=== PATIENT | female | born 1990 | race Two or more races ===

== ENCOUNTER 2025-06-17 02:50 | Emergency (ER) | payer MEDICAID, OTHER ==
[~2025-06-17] VITALS: Ht 152.4 cm; Wt 4.0 kg
[2025-06-17 03:10] VITALS: BP 149/94; PULSE 114; RESP 18; TEMP 99; O2SAT 96
--- NOTE | 2025-06-17 03:20 | ED.PDOC ---
Back pain HPI HPI Comments PT C/O 9/10 PAIN TO RT WRIST S/P FALL THIS MORNING. PT REPORTS THAT SHE TRIPPED AND FELL. NOTED DEFORMITY AND SWELLING TO RT WRIST. PULSES PRESENT, BRISK CAP REFILL. PT A&OX4, VSS, RR EVEN AND UNLABORED ON RA. Chief Complaint: Upper Extremity Time Seen by MD: 02:52 Reviewed Notes: Nurses Notes, Medications, Allergies Allergies: Coded Allergies: NO KNOWN ALLERGIES (Unverified , 06/17/25) Information Source: Patient Past Medical History PAST MEDICAL HISTORY: Denies Surgical History: Denies all surgeries PAINT MAKER History: No Pertinent PAINT MAKER History Family History Family History: Reviewed,noncontributory to illness Social History Smoker: Non-Smoker Alcohol: Denies ETOH Use Drugs: Denies Drug Use Constitutional: denies: chills, diaphoresis, fatigue, fever, malaise, sweats, weakness, others EENTM: denies: blurred vision, double vision, ear bleeding, ear discharge, ear drainage, ear pain, ear ringing, eye pain, eye redness, hearing loss, mouth pain, mouth swelling, nasal discharge, nose bleeding, nose congestion, nose pain, photophobia, tearing, throat pain, throat swelling, voice changes, others Respiratory: denies: cough, hemoptysis, orthopnea, SOB at rest, shortness of breath, SOB with excertion, stridor, wheezing, others Cardiovascular: denies: chest pain, dizzy spells, diaphoresis, Dyspnea on exertion, edema, irregular heart beat, left arm pain, lightheadedness, palpitations, PND, syncope, others Gastrointestinal: denies: abdomen distended, abdominal pain, blood streaked bowels, constipated, diarrhea, dysphagia, difficulty swallowing, hematemesis, melena, nausea, poor appetite, poor fluid intake, rectal bleeding, rectal pain, vomiting, others Genitourinary: denies: abnormal vagina bleeding, burning, dyspareunia, dysuria, flank pain, frequency, hematuria, incontinence, pain, , vagina discharge, urgency, others Neurological: denies: dizziness, fainting, headache, left sided numbness, left sided weakness, numbness, paresthesia, pre-existing deficit, right sided numbness, right sided weakness, seizure, speech problems, tingling, tremors, weakness, others Musculoskeletal: reports: joint pain, joint swelling; denies: back pain, gout, muscle pain, muscle stiffness, neck pain, others Integumetry: denies: bruises, change in color, change in hair/nails, dryness, laceration, lesions, lumps, rash, wounds, others Allergic/Immunocompromised: denies: Difficulty Healing, Frequent Infections, Hives, Itching, others Hematologic/Lymphatic: denies: anemia, blood clots, easy bleeding, easy bruising, swollen glands, others Endocrine: denies: excessive hunger, excessive sweating, excessive thirst, excessive urination, flushing, intolerance to cold, intolerance to heat, unexplained weight gain, unexplained weight loss, others Psychiatric: denies: anxiety, bipolar disorder, depression, hopeless, panic disorder, schizophrenia, sleepless, suicidal, others Physical Exam General Appearance: No Apparent Distress, Normal HEENT: Pharynx Normal Neck: Full Range of Motion, Non-Tender Respiratory: Lungs Clear, No Respiratory Distress, Normal Breath Sounds Cardiovascular: No Murmur, Normal Peripheral Pulses, Regular Rate/Rhythm Breast Exam: Deferred Gastrointestinal: Non Tender, Soft Genitalia: Deferred Pelvic: Deferred Rectal: Deferred Extremities: Normal range of motion Musculoskeletal : Location: Right Extremity Location: Wrist (PALPATED OVER ANTERIOR WRIST MORDERATE EDEMA AND ANGULATION NOTED. STRENGTH SENSORY MOTION INTACT POSITIVE RADIAL PULSE) Apperance: Normal Neurologic: Alert, No Motor Deficits, Normal Affect, Normal Mood, No Sensory Deficits Cerebellar Function: Normal Reflexes: Normal Skin: Dry, Normal Color, Warm Lymphatic: No Adenopathy Was a procedure done? Was a procedure done?: Yes Sedation Sedation?: No Informed consent obtained: Yes Reduction Indication: Subluxation, Fracture Intra-articular anesthetic nely: Yes Nerve Block: Radial Post-reduction x-ray show: Acceptable Alignment Informed consent obtained: Yes Risks/benefits/alt described: Yes Notes TOLERATED WELL POSITIVE CSM BEFORE AND AFTER PROCEDURE. Back Pain Differential Dx Differential Diagnosis: Fracture, Musculoskeletal Pain, Strain X-Ray, Labs, Meds, VS Vital Signs Date Time Temp Pulse Resp B/P (MAP) Pulse Ox O2 Delivery O2 Flow Rate FiO2 06/17/25 03:10 99.0 114 18 149/94 (112) 96 99.0 Current Medications Medications (Trade) Dose Ordered Sig/Ras Route Start Time Stop Time Status Last Admin Acetaminophen/ Hydrocodone Bitart ([place] 5/325MG Tab) 1 tab ONCE ONCE PO 06/17/25 03:15 06/17/25 03:17 DC 06/17/25 03:41 Ibuprofen (Motrin Tablet) 800 mg ONCE ONCE PO 06/17/25 03:15 06/17/25 03:17 DC 06/17/25 03:40 X-Ray, Labs, Meds, VS Comment Y R WRIST 3+ VIEW XRAY Comparison: None FINDINGS/IMPRESSION: : Moderately displaced comminuted Colles' type distal radial fracture with intra- articular extension. Moderately distracted ulnar styloid process fracture. Associated soft tissue swelling. RIGHT WRIST REDUCED SEE PROCEDURE NOTE. POLICE IN SPLINT AND SLING. SCRIPT TRIAL OF IBUPROFEN ADVISED TAKE MEDICATION PRESCRIBED SIDE EFFECTS DISCUSSED. ADVISED IN MORNING CALL PCP REFERRAL TO DR. KALYAN LUCIO FOR ORTHO CONSULT AND RE-EVALUATION. ADVISED ON RICE. ADVISED ON ER RETURN PRECAUTIONS PATIENT INDICATES UNDERSTANDING AND AGREES WITH DISCHARGE PLAN OF CARE. Time of 1ST Reevaluation: 02:52 Reevaluation 1ST: Unchanged Time of 2ND Reevaluation: 04:14 Reevaluation 2ND: Improved Patient Education/Counseling: Diagnosis, Treatment, Prognosis, Need For Follow Up Family Education/Counseling: No Family Present SEPSIS Sepsis Screen Physician Orders R Wrist 3+ View Xray (06/17/25 03:14) Splints (06/17/25 ) Apply Sling (06/17/25 03:38) R Wrist 3+ View Xray (06/17/25 04:15) Vital Signs Date Time Temp Pulse Resp B/P (MAP) Pulse Ox O2 Delivery O2 Flow Rate FiO2 06/17/25 03:10 99.0 114 18 149/94 (112) 96 99.0 Medications Medications Dose Ordered Sig/Ras Route Start Time Stop Time Status Last Admin Dose Admin Acetaminophen/ Hydrocodone Bitart 1 tab ONCE ONCE PO 06/17/25 03:15 06/17/25 03:17 DC 06/17/25 03:41 Ibuprofen 800 mg ONCE ONCE PO 06/17/25 03:15 06/17/25 03:17 DC 06/17/25 03:40 Departure 1 Departure Time of Disposition: 04:58 Impression: Primary Impression: Colles' fracture of right radius, initial encounter for closed fracture Disposition: 01 HOME / SELF CARE / HOMELESS Condition: Stable e-Prescriptions Ibuprofen (Ibuprofen) 800 Mg Tab 800 MG PO Q8HP PRN for 5 Days, #15 TAB Prov: SARAY MOCK 06/17/25 Discharged With: Self Critical Care Note Critical Care Time?: No Stability Stability form required: SARAY Munroe Jun 17, 2025 03:20
[2025-06-17] MEDS: IBUPROFEN 800 MG TAB PO ONE (03:40)
[2025-06-17] MEDS: HYDROcodone-ACET 5/325MG TAB PO ONE (03:41)
--- NOTE | 2025-06-17 03:47 | DVH ---
CLINICAL INDICATION: INJURY TECHNIQUE: XY R WRIST 3+ VIEW XRAY Comparison: None FINDINGS/IMPRESSION: : Moderately displaced comminuted Colles' type distal radial fracture with intra-articular extension. M oderately distracted ulnar styloid process fracture. Associated soft tissue swelling.
[2025-06-17] MEDS: LIDOCAINE 2%HCL (LOCAL ANESTH.) INJ 10ml MDV IJ ONE (04:00)
[2025-06-17] MEDS ORDERED: IBUP-1456 PO (05:00)
--- NOTE | 2025-06-17 05:08 | DVH ---
CLINICAL INDICATION: POST REDUCTION TECHNIQUE: XY R WRIST 3+ VIEW XRAY Comparison: XY R WRIST 3+ VIEW XRAY on DOS: 06/17/25 FINDINGS/IMPRESSION: : Slight interval improvement in alignment post reduction of comminuted and displaced fracture of the d istal radial metaphysis.
== END 2025-06-17 05:30 | disposition home or self-care (01) ==
LOC: ER 02:50
DX: S52.531A Colles' fracture of right radius, initial encounter for closed fracture (principal); W01.0XXA Fall on same level from slipping, tripping and stumbling without subsequent striking against object, initial encounter; Y93.89 Activity, other specified; Y92.89 Other specified places as the place of occurrence of the external cause; Y99.8 Other external cause status
CPT/HCPCS: 25605; 73110

== ENCOUNTER 2025-06-21 21:00 | Emergency (ER) | payer MEDICAID ==
[~2025-06-21] VITALS: Ht 162.6 cm; Wt 68.2 kg
[~2025-06-21 21:00] MED LIST: IBUP-1456 PO
[2025-06-21 21:25] VITALS: BP 161/99; PULSE 99; RESP 18; TEMP 97.8; O2SAT 100
[2025-06-21] MEDS ORDERED: HYDR-4902 PO (22:25)
--- NOTE | 2025-06-21 22:26 | ED.PDOC ---
Josefa. trauma (HPI) HPI Comments This patient is a pleasant 35-year-old female who arrives the ED today for evaluation of right arm splint as well as assistance with ortho follow up. Patient was seen this facility a week ago and diagnosed with a distal radial fracture that was comminuted and displaced. Patient states she has attempted to follow up with our orthopedic group as well as [facility], but no one has contacted her. Patient denies any fever nausea or vomiting. Patient's splint is ragged and ineffective. Time Seen by MD: 21:23 Reviewed notes: Nurses Notes Allergies: Coded Allergies: NO KNOWN ALLERGIES (Unverified , 06/17/25) Home Meds Active Scripts Ibuprofen (Ibuprofen) 800 Mg Tab, 800 MG PO Q8HP PRN for 5 Days, #15 TAB Prov:SARAY MOCK LOBO 06/17/25 Information Source: Patient Mode of Arrival: Ambulatory Severity: Moderate Timing: Days Duration: Since onset Prehospital treatment: Pain Meds Location: (R) Arm Location of laceration: None Mechanism: Blunt trauma Past Medical History PAST MEDICAL HISTORY: Denies Past Medical History (Other): Recently suffered a right distal radial fracture Surgical History: Denies all surgeries FACILITY COORDINATOR History: No Pertinent FACILITY COORDINATOR History Family History Family History: Reviewed,noncontributory to illness Social History Smoker: Non-Smoker Alcohol: Denies ETOH Use Drugs: Denies Drug Use Lives In: Home Constitutional: denies: chills, diaphoresis, fatigue, fever, malaise, sweats, weakness, others EENTM: denies: blurred vision, double vision, ear bleeding, ear discharge, ear drainage, ear pain, ear ringing, eye pain, eye redness, hearing loss, mouth pain, mouth swelling, nasal discharge, nose bleeding, nose congestion, nose pain, photophobia, tearing, throat pain, throat swelling, voice changes, others Respiratory: denies: cough, hemoptysis, orthopnea, SOB at rest, shortness of breath, SOB with excertion, stridor, wheezing, others Cardiovascular: denies: chest pain, dizzy spells, diaphoresis, Dyspnea on exertion, edema, irregular heart beat, left arm pain, lightheadedness, palpitations, PND, syncope, others Gastrointestinal: denies: abdomen distended, abdominal pain, blood streaked bowels, constipated, diarrhea, dysphagia, difficulty swallowing, hematemesis, melena, nausea, poor appetite, poor fluid intake, rectal bleeding, rectal pain, vomiting, others Genitourinary: denies: abnormal vagina bleeding, burning, dyspareunia, dysuria, flank pain, frequency, hematuria, incontinence, pain, , vagina discharge, urgency, others Neurological: denies: dizziness, fainting, headache, left sided numbness, left sided weakness, numbness, paresthesia, pre-existing deficit, right sided numbness, right sided weakness, seizure, speech problems, tingling, tremors, weakness, others Musculoskeletal: reports: others (Distal radial fracture of the right arm); d enies: back pain, gout, joint pain, joint swelling, muscle pain, muscle stiffness, neck pain Integumetry: denies: bruises, change in color, change in hair/nails, dryness, laceration, lesions, lumps, rash, wounds, others Allergic/Immunocompromised: denies: Difficulty Healing, Frequent Infections, Hives, Itching, others Hematologic/Lymphatic: denies: anemia, blood clots, easy bleeding, easy bruising, swollen glands, others Endocrine: denies: excessive hunger, excessive sweating, excessive thirst, excessive urination, flushing, intolerance to cold, intolerance to heat, unexplained weight gain, unexplained weight loss, others Psychiatric: denies: anxiety, bipolar disorder, depression, hopeless, panic disorder, schizophrenia, sleepless, suicidal, others Physical Exam General Appearance: Moderate Distress ([id number] distress due to pain related to the poorly place splint.), Normal HEENT: Normal ENT Inspection, Pharynx Normal, TMs Normal Neck: Full Range of Motion, Non-Tender, Normal, Normal Inspection Respiratory: Chest Non-Tender, Lungs Clear, No Accessory Muscle Use, No Respiratory Distress, Normal Breath Sounds Cardiovascular: No Edema, No JVD, No Murmur, No Gallop, Normal Peripheral Pulses, Regular Rate/Rhythm Breast Exam: Deferred Gastrointestinal: No Organomegaly, Non Tender, No Pulsatile Mass, Normal Bowel Sounds, Soft Genitalia: Deferred Pelvic: Deferred Rectal: Deferred Extremities: Other (Patient has a ready and ineffective sugar-tong splint to the right forearm.) Neurologic: Alert, No Motor Deficits, Normal Affect, Normal Mood, No Sensory Deficits Cerebellar Function: Normal Reflexes: Normal Skin: Dry, Normal Color, Warm Lymphatic: No Adenopathy Was a procedure done? Was a procedure done?: No Differential Diagnosis Multiple Trauma: Other (Distal radial fracture) X-Ray, Labs, Meds, VS Comment Patient had a new splint placed prior to discharge. Advised patient to follow up with [facility] on Tuesday personally or, come to this facility and asked for the orthopedic group run by Dr. Alexis for assistance. Time of 1ST Reevaluation: 22:23 Reevaluation 1ST: Improved Consultation: PCP, Other (Orthopedist) Patient Education/Counseling: Diagnosis, Treatment Family Education/Counseling: Diagnosis, Treatment Departure 1 Departure Time of Disposition: 22:24 Impression: Primary Impression: Fracture of right distal radius Additional Impression: Encounter for evaluation of wound Disposition: HOME / SELF CARE / HOMELESS Condition: Stable Additional Instructions: Advised patient go to [facility] on Tuesday or, come to this facility physically and asked for the orthopedic group run by Dr. Alexis. Pain medication as needed. e-Prescriptions Hydrocodone-Acetaminophen (Hydrocodone Bitartrate/AC 5-325 mg) 1 Tab Tab 1 TAB PO Q6HP PRN, #15 TAB Prov: VALERIE AYALA PAC 06/21/25 Discharged With: Self, Friend Critical Care Note Critical Care Time?: No Stability Stability form required: No Heart Score Heart Score: Heart Score Response (Comments) Value History N/A 0 EKG N/A 0 Age N/A 0 Risk Factors N/A 0 Troponin N/A 0 Total 0 VALERIE AYALA PAC Jun 21, 2025 22:26
[2025-06-21] MEDS ORDERED: HYDROcodone-ACET 5/325MG TAB PO ONE (22:30)
== END 2025-06-21 22:50 | disposition home or self-care (01) ==
LOC: ER 21:00
DX: S52.591D Other fractures of lower end of right radius, subsequent encounter for closed fracture with routine healing (principal); Z79.899 Other long term (current) drug therapy; Z48.89 Encounter for other specified surgical aftercare; X58.XXXD Exposure to other specified factors, subsequent encounter
CPT/HCPCS: 29125

== ENCOUNTER 2025-07-18 03:15 | Emergency (ER) | payer MEDICAID ==
[~2025-07-18] VITALS: Ht 162.6 cm; Wt 70.0 kg
[~2025-07-18 03:15] MED LIST changes: +HYDR-4902 PO; -IBUP-1456 PO
[2025-07-18 03:17] VITALS: BP 131/92; PULSE 96; RESP 18; TEMP 98.8; O2SAT 98
--- NOTE | 2025-07-18 04:34 | ED.PDOC ---
Musculoskeletal HPI Comments 35-year-old female presents to ER with complaints of right wrist pain x 1 month. Patient states she fractured her right wrist 1 month ago and has since been experiencing pain/swelling to right wrist that got worse today upon tripping/falling onto right wrist onto carpet. She rates her current pain an 8/10 to right wrist without radiation. States she has been "unable" to get an appointment to see an orthopedic doctor. Denies numbness/tingling, right hand pain, fever or any further symptoms/complaints Chief Complaint: Upper Extremity Time Seen by MD: 04:05 Primary Care Provider: UNKNOWN Reviewed Notes: Nurses Notes, Medications, Allergies Allergies: Coded Allergies: NO KNOWN ALLERGIES (Unverified , 06/17/25) Home Meds Active Scripts Hydrocodone-Acetaminophen (Hydrocodone Bitartrate/AC 5-325 mg) 1 Tab Tab, 1 TAB PO Q6HP PRN, #15 TAB Prov:LUCYVALERIE Korin PAC 06/21/25 Information Source: Patient Mode of Arrival: Ambulatory Past Medical History Past Medical History (Other): Right wrist - 07-18-25 Surgical History: Denies all surgeries PATTERN DESIGNER History: No Pertinent PATTERN DESIGNER History Family History Family History: Reviewed,noncontributory to illness Social History Smoker: Non-Smoker Alcohol: Denies ETOH Use Drugs: Denies Drug Use Lives In: Home Constitutional: denies: chills, diaphoresis, fatigue, fever, malaise, sweats, weakness, others EENTM: denies: blurred vision, double vision, ear bleeding, ear discharge, ear drainage, ear pain, ear ringing, eye pain, eye redness, hearing loss, mouth pain, mouth swelling, nasal discharge, nose bleeding, nose congestion, nose pain, photophobia, tearing, throat pain, throat swelling, voice changes, others Respiratory: denies: cough, hemoptysis, orthopnea, SOB at rest, shortness of breath, SOB with excertion, stridor, wheezing, others Cardiovascular: denies: chest pain, dizzy spells, diaphoresis, Dyspnea on exertion, edema, irregular heart beat, left arm pain, lightheadedness, palpitations, PND, syncope, others Gastrointestinal: denies: abdomen distended, abdominal pain, blood streaked bowels, constipated, diarrhea, dysphagia, difficulty swallowing, hematemesis, m lucius, nausea, poor appetite, poor fluid intake, rectal bleeding, rectal pain, vomiting, others Genitourinary: denies: abnormal vagina bleeding, burning, dyspareunia, dysuria, flank pain, frequency, hematuria, incontinence, pain, , vagina discharge, urgency, others Neurological: denies: dizziness, fainting, headache, left sided numbness, left sided weakness, numbness, paresthesia, pre-existing deficit, right sided numbness, right sided weakness, seizure, speech problems, tingling, tremors, weakness, others Musculoskeletal: reports: others (As stated in HPI) Integumetry: reports: others (As stated in HPI) Allergic/Immunocompromised: denies: Difficulty Healing, Frequent Infections, Hives, Itching, others Hematologic/Lymphatic: denies: anemia, blood clots, easy bleeding, easy bruising, swollen glands, others Endocrine: denies: excessive hunger, excessive sweating, excessive thirst, excessive urination, flushing, intolerance to cold, intolerance to heat, unexplained weight gain, unexplained weight loss, others Psychiatric: denies: anxiety, bipolar disorder, depression, hopeless, panic disorder, schizophrenia, sleepless, suicidal, others Physical Exam General Appearance: No Apparent Distress HEENT: PERRL/EOMI Neck: Full Range of Motion, Non-Tender, Normal Respiratory: Chest Non-Tender, Lungs Clear, No Accessory Muscle Use, No Respiratory Distress, Normal Breath Sounds Cardiovascular: No Murmur, No Gallop, Regular Rate/Rhythm Breast Exam: Deferred Gastrointestinal: NOT DONE Genitalia: Deferred Pelvic: Deferred Rectal: Deferred Extremities: Normal capillary refill Musculoskeletal : Extremity Location: Wrist (Moderate swelling/TTP noted to right distal radius/right distal ulna. + deformity noted. Pulses intact. No other TTP to right upper extremity noted) Neurologic: Alert, No Motor Deficits, Normal Affect, Normal Mood, No Sensory Deficits Cerebellar Function: Normal Reflexes: Normal Skin: Dry, Normal Color, Warm Peripheral Pulses: 2+ Radial (R), 2+ Radial (L), 2+ Brachial (R), 2+ Brachial (L) Lymphatic: No Adenopathy Was a procedure done? Was a procedure done?: No Sedation Sedation?: No Differential Diagnosis EXT Differential Diagnosis: Dislocation, Laceration, Neurovascular injury X-Ray, Labs, Meds, VS Vital Signs Date Time Temp Pulse Resp B/P (MAP) Pulse Ox O2 Delivery O2 Flow Rate FiO2 07/18/25 03:17 98.8 96 18 131/92 98 98.8 PATIENT: WINSOME GUZMANACCT: [id number]: [id number] : 1990 LOC: ER ROOM / BED: / AGE / SEX: 35 / F ADM STATUS: REG ER SERVICE [id number] ORDERING PHYSICIAN: CARLOTTA LEONARD PROCEDURE(s): RWRI - R WRIST 3+ VIEW XRAY REASON: right wrist pain ORDER NUMBER(s): [id number], ACCESSION NUMBER(s): [id number] CLINICAL INDICATION: right wrist pain TECHNIQUE: XY R WRIST 3+ VIEW XRAY Comparison: XY R WRIST 3+ VIEW XRAY on DOS: 06/17/25, XY R WRIST 3+ VIEW XRAY on DOS: 06/17/25 FINDINGS/IMPRESSION: : Significantly displaced severely comminuted Colles' type distal radial fracture with intra-articular extension. Moderately displaced ulnar styloid process fracture. Probable distal radioulnar joint disruption. Moderate diffuse soft tissue swelling. ATED BY: LAVON BROWN MD DICTATED DATE/TIME: 07/18/25450 SIGNED BY: LAVON BROWN MD SIGNED DATE/TIME: 07/18/25450 CC: Right wrist x-ray reviewed Right sugar-tong splint applied Right arm sling applied Patient neurovascularly intact Previous chart visits reviewed Discussed with patient that I would like to admit her for urgent need for orthopedic consult. Patient refused admission due to "having to work" and states she is going to attempt to follow up again today with Orthopedics and notes if she can not get an appointment she will return back to ER Risks of not following up with orthopedics were discussed with patient including risk of partial/permanent and risk of limb loss Was advised to follow up with Orthopedics and PCP as soon as possible Patient verbalized understanding and agreeable with current plan of care Advised to return to ER immediately if symptoms worsen Images Reviewed?: Images reviewed and evaluated by me Time of 1ST Reevaluation: 04:04 Reevaluation 1ST: N/A Patient Education/Counseling: Diagnosis, Treatment, Prognosis, Need For Follow Up Family Education/Counseling: No Family Present Departure 1 Departure Time of Disposition: 04:32 Impression: Primary Impression: Fracture of right distal radius Qualified Codes: S52.531A - Colles' fracture of right radius, initial encounter for closed fracture Disposition: 01 HOME / SELF CARE / HOMELESS Condition: Stable Discharged With: Friend Critical Care Note Critical Care Time?: No Stability Stability form required: No Heart Score Heart Score: Heart Score Response (Comments) Value History N/A 0 EKG N/A 0 Age N/A 0 Risk Factors N/A 0 Troponin N/A 0 Total 0 CARLOTTA LEONARD Jul 18, 2025 04:34
--- NOTE | 2025-07-18 04:53 | DVH ---
CLINICAL INDICATION: right wrist pain TECHNIQUE: XY R WRIST 3+ VIEW XRAY Comparison: XY R WRIST 3+ VIEW XRAY on DOS: 06/17/25, XY R WRIST 3+ VIEW XRAY on DOS: 06/17/25 FINDINGS/IMPRESSION: : Significantly displaced severely comminuted Colles' type distal radial fracture with intra-articular extension. Moderately displaced ulnar styloid process fracture. Probable distal radioulnar joint disr uption. Moderate diffuse soft tissue swelling.
== END 2025-07-18 06:05 | disposition home or self-care (01) ==
LOC: ER 03:15
DX: S52.531A Colles' fracture of right radius, initial encounter for closed fracture (principal); W01.0XXA Fall on same level from slipping, tripping and stumbling without subsequent striking against object, initial encounter; Y93.89 Activity, other specified; Y92.89 Other specified places as the place of occurrence of the external cause; Y99.8 Other external cause status
CPT/HCPCS: 29125; 73110

== ENCOUNTER 2025-07-23 09:08 | Emergency (ER) | payer MEDICAID ==
[~2025-07-23] VITALS: Ht 162.6 cm; Wt 69.3 kg
--- NOTE | 2025-07-23 10:53 | DVH ---
EXAM: XY R WRIST 3+ VIEW XRAY HISTORY: Fracture. Seen 21st Left AMA COMPARISON: XY R WRIST 3+ VIEW XRAY on DOS: 07/18/25, XY R WRIST 3+ VIEW XRAY on DOS: 06/17/25, XY R WR IST 3+ VIEW XRAY on DOS: 06/17/25 TECHNIQUE: 3 views of the right wrist were performed. FINDINGS: There is a displaced distal radius fracture with bridging callus formation similar to the prior study from 07/18/2025. Persistent dorsal tilt of the distal fracture fragment. There is ulnar styloid frac ture. Regional soft tissue swelling. IMPRESSION: 1. No significant change in appearance of distal radius and ulnar styloid fractures.
[2025-07-23 11:14] LABS: Hematocrit 39.4 % (36.0-46.0); Hemoglobin 13.5 g/dL (12.2-16.2); Mean Corpuscular Hemoglobin 32.9 pg (28.0-32.0); Mean Corpuscular Volume 96.3 fL (80.0-100.0); Nucleated Red Blood Cells % 0.1 %
[2025-07-23 11:19] LABS: Chloride 105 mmol/L (98-107); Potassium 3.8 mmol/L (3.5-5.1); Sodium 139 mmol/L (136-145)
[2025-07-23 11:20] LABS: Anion Gap 8 (5-15); Carbon Dioxide 26 mmol/L (20-31)
[2025-07-23 11:21] LABS: Calcium 9.6 mg/dL (8.7-10.4)
[2025-07-23 11:25] LABS: BUN/Creatinine Ratio 8.3 (10.0-20.0); Glucose 81 mg/dL (74-106)
--- NOTE | 2025-07-23 11:29 | ED.PDOC ---
Musculoskeletal HPI Comments This is a 35-year-old female who presents to the ED with a chief complaint of right wrist pain S/P fall X5 week ago. Patient reports fracturing the wrist X1 month ago, with symptoms worsening after the fall. Patient came to the ED on , 07/18/25, but left AMA. Patient came back to the ED today for possible admission and an orthopedic consult. Patient has no further complaints at this time and otherwise denies further associated symptoms of chest pain, weakness, fever, chills, or N/V/D. Chief Complaint: Upper Extremity Time Seen by MD: 10:37 Primary Care Provider: UNKNOWN Allergies: Coded Allergies: NO KNOWN ALLERGIES (Unverified , 06/17/25) Home Meds Active Scripts Hydrocodone-Acetaminophen (Hydrocodone Bitartrate/AC 5-325 mg) 1 Tab Tab, 1 TAB PO Q6HP PRN, #15 TAB Prov:VALERIE AYALA PAC 06/21/25 Information Source: Patient Mode of Arrival: Ambulatory Location: Right Extremity Location: Wrist Timing: Days Prehospital treatment: None Severity: Moderate Pain: Moderate Circumstances: Fall Onset of Symptoms: After Trauma Symptoms: Pain Associated signs and symptoms: Wrist pain Past Medical History PAST MEDICAL HISTORY: Denies Surgical History: Denies all surgeries PRISON GUARD History: No Pertinent PRISON GUARD History Family History Family History: Reviewed,noncontributory to illness Social History Smoker: Non-Smoker Alcohol: Denies ETOH Use Drugs: Denies Drug Use Lives In: Home Constitutional: denies: chills, diaphoresis, fatigue, fever, malaise, sweats, weakness, others EENTM: denies: blurred vision, double vision, ear bleeding, ear discharge, ear drainage, ear pain, ear ringing, eye pain, eye redness, hearing loss, mouth pain, mouth swelling, nasal discharge, nose bleeding, nose congestion, nose pain, photophobia, tearing, throat pain, throat swelling, voice changes, others Respiratory: denies: cough, hemoptysis, orthopnea, SOB at rest, shortness of breath, SOB with excertion, stridor, wheezing, others Cardiovascular: denies: chest pain, dizzy spells, diaphoresis, Dyspnea on exertion, edema, irregular heart beat, left arm pain, lightheadedness, palpitations, PND, syncope, others Gastrointestinal: denies: abdomen distended, abdominal pain, blood streaked bowels, constipated, diarrhea, dysphagia, difficulty swallowing, hematemesis, melena, nausea, poor appetite, poor fluid intake, rectal bleeding, rectal pain, vomiting, others Genitourinary: denies: abnormal vagina bleeding, burning, dyspareunia, dysuria, flank pain, frequency, hematuria, incontinence, pain, , vagina discharge, urgency, others Neurological: denies: dizziness, fainting, headache, left sided numbness, left sided weakness, numbness, paresthesia, pre-existing deficit, right sided numbness, right sided weakness, seizure, speech problems, tingling, tremors, weakness, others Musculoskeletal: reports: others (R wrist pain ); denies: back pain, gout, joint pain, joint swelling, muscle pain, muscle stiffness, neck pain Integumetry: denies: bruises, change in color, change in hair/nails, dryness, laceration, lesions, lumps, rash, wounds, others Allergic/Immunocompromised: denies: Difficulty Healing, Frequent Infections, Hives, Itching, others Hematologic/Lymphatic: denies: anemia, blood clots, easy bleeding, easy bruising, swollen glands, others Endocrine: denies: excessive hunger, excessive sweating, excessive thirst, excessive urination, flushing, intolerance to cold, intolerance to heat, unexplained weight gain, unexplained weight loss, others Psychiatric: denies: anxiety, bipolar disorder, depression, hopeless, panic disorder, schizophrenia, sleepless, suicidal, others All Other Systems: Reviewed and Negative Was a procedure done? Was a procedure done?: No Differential Diagnosis EXT Differential Diagnosis: Fracture, Sprain, Dislocation, Strain X-Ray, Labs, Meds, VS Vital Signs Date Time Temp Pulse Resp B/P (MAP) Pulse Ox O2 Delivery O2 Flow Rate FiO2 07/23/25 16:08 86 16 98 Room Air 07/23/25 16:08 98.7 89 16 137/64 (88) 98 98.7 07/23/25 09:09 98.3 81 16 173/115 98 98.3 170/118 Lab Test 07/23/25 14:20 07/23/25 10:45 Range/Units Urine Color Light-yellow Yellow Urine Clarity Turbid H Clear Urine pH 6.5 5.0-9.0 Urine Specific [place] 1.017 1.001-1.035 Urine Protein Negative Negative Urine Ketones Negative Negative Urine Blood Negative Negative /uL Urine Nitrite 2+ H Negative Urine Bilirubin Negative Negative Urine Urobilinogen Normal Negative mg/dL Urine Leukocyte Esterase Negative Negative /uL Urine RBC 2 0 - 4 /hpf Urine Microscopic WBC 14 H 0-5 /HPF Urine Squamous Epithelial Cells Few <5 /hpf Urine Bacteria Few H None Seen /hpf Urine Mucus Few None Seen Urine Glucose Normal Normal mg/dL White Blood Count 6.7 4.4-10.8 10^3/uL Red Blood Count 4.09 4.0-5.20 10^6/uL Hemoglobin 13.5 12.2-16.2 g/dL Hematocrit 39.4 36.0-46.0 % Mean Corpuscular Volume 96.3 80.0-100.0 fL Mean Corpuscular Hemoglobin 32.9 H 28.0-32.0 pg Mean Corpuscular Hemoglobin Concent 34.2 32.0-36.0 g/dL Red Cell Distribution Width 15.8 H 11.8-14.3 % Platelet Count 417 140-450 10^3/uL Mean Platelet Volume 6.9 6.9-10.8 fL Neutrophils (%) (Auto) 66.3 37.0-80.0 % Lymphocytes (%) (Auto) 24.5 10.0-50.0 % Monocytes (%) (Auto) 7.3 0.0-12.0 % Eosinophils (%) (Auto) 1.2 0.0-7.0 % Basophils (%) (Auto) 0.7 0.0-2.0 % Neutrophils # (Auto) 4.4 1.6-8.6 10 ^3/uL Lymphocytes # (Auto) 1.6 0.4-5.4 10 ^3/uL Monocytes # (Auto) 0.5 0-1.3 10 ^3/uL Eosinophils # (Auto) 0.1 0-0.8 10 ^3/uL Basophils # (Auto) 0 0-0.2 10 ^3/uL Nucleated Red Blood Cells 0.1 % Sodium Level 139 136-145 mmol/L Potassium Level 3.8 3.5-5.1 mmol/L Chloride Level 105 98-107 mmol/L Carbon Dioxide Level 26 20-31 mmol/L Anion Gap 8 5-15 Blood Urea Nitrogen 6 L 9-23 mg/dL Creatinine 0.72 0.550-1.02 mg/dL Glomerular Filtration Rate Calc 112 >90 mL/min BUN/Creatinine Ratio 8.3 L 10.0-20.0 Serum Glucose 81 74-106 mg/dL Calcium Level 9.6 8.7-10.4 mg/dL [facility] [id number] [facility] [id number] Ph: [phone] DIAGNOSTIC IMAGING Diagnostic Imaging Report : [id number] Signed PATIENT: WINSOME GUZMAN ACCT: [id number] UNIT: [id number] : 1990 LOC: ER ROOM / BED: / AGE / SEX: 35 / F ADM STATUS: REG ER SERVICE 1009 ORDERING PHYSICIAN: DA TIAN NP PROCEDURE(s): RWRI - R WRIST 3+ VIEW XRAY REASON: Fracture. Seen Left AMA ORDER NUMBER(s): [id number], ACCESSION NUMBER(s): [id number] EXAM: XY R WRIST 3+ VIEW XRAY HISTORY: Fracture. Seen 21st Left AMA COMPARISON: XY R WRIST 3+ VIEW XRAY on DOS: 07/18/25, XY R WRIST 3+ VIEW XRAY on DOS: 06/17/25, XY R WRIST 3+ VIEW XRAY on DOS: 06/17/25 TECHNIQUE: 3 views of the right wrist were performed. FINDINGS: There is a displaced distal radius fracture with bridging callus formation similar to the prior study from 07/18/2025. Persistent dorsal tilt of the distal fracture fragment. There is ulnar styloid fracture. Regional soft tissue swelling. IMPRESSION: 1. No significant change in appearance of distal radius and ulnar styloid fractures. X-Ray, Labs, Meds, VS Comment This is a 35-year-old female who presents to the ED with a chief complaint of right wrist pain S/P trauma Patient arrives alert and oriented, ABC's intact, afebrile, vital signs stable, saturating well in room air Peripheral IV insertion+ labs were ordered. CBC was ordered to exclude anemia, blood loss, or infection. BMP was ordered to exclude electrolyte abnormalities, renal failure, dehydration, hyperglycemia Urinalysis was ordered to rule out UTI or hematuria. Diagnostic imaging ordered by me and results interpreted by radiology : There is a displaced distal radius fracture with bridging callus formation similar to the prior study from 07/18/2025. Persistent dorsal tilt of the distal fracture fragment. There is ulnar styloid fracture. Regional soft tissue swelling. 13:05 May at bedside at this time. Pt was evaluated. Pt is pending further Ortho recommendations at this time. Patients work up was remarkable fractures Has no insurance/PCP nor out patient follow up The patient's workup reveals that the patient needs further evaluation and/or treatment for the above medical conditions. Patient verbalized understanding of the above and is awaiting further evaluation by the admitting service. Images Reviewed?: Images reviewed and evaluated by me Time of 1ST Reevaluation: 11:24 Reevaluation 1ST: Unchanged Time of 2ND Reevaluation: 13:05 Reevaluation 2ND: Unchanged ( at bedside at this time. Pt was evaluated. Pt is pending further Ortho reccomendations at this time. ) Patient Education/Counseling: Diagnosis, Treatment, Need For Follow Up Family Education/Counseling: No Family Present Medical Screening: No EMC Exist At This Time Departure 1 Departure Time of Disposition: 16:38 Impression: Primary Impression: Fracture of right distal radius Qualified Codes: S52.501S - Unspecified fracture of the lower end of right radius, sequela Additional Impressions: Colles' fracture of right radius, initial encounter for closed fracture Left against medical advice Disposition: 07 LEFT AGAINST MEDICAL ADVICE Condition: Unstable Additional Instructions: Follow up with PCP in 1-2 days. Take medications as prescribed. Return to the ED for any new or worsening symptoms. Discharged With: Self Critical Care Note Critical Care Time?: No Stability Stability form required: No Heart Score Heart Score: Heart Score Response (Comments) Value History N/A 0 EKG N/A 0 Age N/A 0 Risk Factors N/A 0 Troponin N/A 0 Total 0 I personally scribed for DA TIAN NP ([email or web address]) on 07/23/25 at 11:29. Electronically submitted by Tammy Catalna ([employer]). I personally scribed for DA TIAN NP ([email or web address]) on 07/23/25 at 13:03. Electronically submitted by Tammy Caatlan ([employer]). I personally scribed for DA TIAN NP ([email or web address]) on 07/23/25 at 13:34. Electronically submitted by Tammy Catalan ([email or web address]). DA TIAN NP Jul 23, 2025 11:29
[2025-07-23 11:30] LABS: Blood Urea Nitrogen 6 mg/dL (9-23)
[2025-07-23 15:03] LABS: Urine Protein, UAD Negative (Negative)
[2025-07-23 16:08] VITALS: BP 137/64; PULSE 86; RESP 16; TEMP 98.7; O2SAT 98
--- NOTE | 2025-07-23 20:00 | DVHINCON2 ---
Consult Note Consult Consult Note History of Present Illness (HPI): Ms. Demetra Villasenor initially sustained a right wrist injury approximately four weeks ago, diagnosed as a distal radius fracture. At that time, she was treated with a splint but did not follow up with her primary care provider or orthopedic surgeon. She was seen again three to four days ago after sustaining a second fall with continued right wrist pain. At that visit, she left against medical advice (AMA) prior to definitive care. Today, the patient presented again after sustaining another fall with recurrent right wrist pain. She was not wearing any splint or cast or brace today. An X- ray was repeated, which confirmed a comminuted distal radius fracture. Orthopedic surgery was consulted. On interview, I counseled the patient that she requires urgent wrist immobiliza tion with splinting or casting and that, given the fracture is already several weeks old, she will also need orthopedic surgical evaluation as soon as possible. Despite these recommendations, the patient again left AMA today without receiving definitive treatment. Following her departure, I attempted to contact the phone number listed in her records. The call was answered by her mother, who identified herself and stated she will attempt to bring her daughter back to the emergency department if possible, so that she may receive immobilization and appropriate surgical referral. --- Exam: Right wrist: minimal swelling, deformity consistent with distal radius fracture, tenderness to palpation.No open skin lesions. ROM limited due to pain. Right Elbow ROM full and intact , pain free. Right shoulder ROM full and intact pain free Neurovascular exam intact. xray right wrist: There is a displaced distal radius fracture with bridging callus formation similar to the prior study from 07/18/2025. Persistent dorsal tilt of the distal fracture fragment. There is ulnar styloid fracture. Regional soft tissue swel ling. --- Assessment: Right wrist comminuted distal radius fracture late presentation (~4 weeks since initial injury), worsened by multiple subsequent falls. Patient has demonstrated repeated non-compliance and multiple AMA departures. High risk for malunion, nonunion, chronic pain, deformity, and permanent disability if untreated. --- Plan: 1. Immobilization: Strongly advised splinting or casting to stabilize fracture. 2. Surgical Need: Recommended urgent orthopedic surgical evaluation due to fracture comminution and chronicity. 3. Counseling: Discussed in detail the risks of no treatment including long- term disability and deformity. 4. Compliance Issue: Patient left AMA again today despite repeated counseling. 5. Family Contact: Patients mother contacted and informed; she reassured me that she will attempt to bring her daughter back for appropriate treatment. 6. Documentation: AMA departure documented by ER We would like to see this patient as soon as possible so appropriate care can be provided. ER to contact Orthopedic oncall marielos if this patient returns. Plan discussed with: Other (er provider) Visit Coding Surgery Date of Service if different f: Jul 23, 2025 Billing Provider: VIJI RAMIREZ Surgery Visit Codes: 87997 - INP CONSULT <40 MIN VIJI RAMIREZ Jul 23, 2025 20:00
== END 2025-07-23 16:41 | disposition left against medical advice (07) ==
LOC: ER 09:08
DX: S52.611A Displaced fracture of right ulna styloid process, initial encounter for closed fracture (principal); S52.531A Colles' fracture of right radius, initial encounter for closed fracture; W19.XXXA Unspecified fall, initial encounter; Y93.89 Activity, other specified; Y92.89 Other specified places as the place of occurrence of the external cause; Y99.8 Other external cause status
CPT/HCPCS: 36415; 73110; 80048; 81001; 85025